=== PATIENT | female | born 1975 | race Two or more races ===

== ENCOUNTER 2022-04-26 10:55 | Emergency (ER) | payer OTHER ==
[~2022-04-26] VITALS: Ht 157.5 cm; Wt 70.3 kg
[2022-04-27] MEDS ORDERED: DICLOFENAC SODI75 MG PO (18:04)
[2022-04-27] MEDS ORDERED: MEDROLPACK PO (18:04)
== END 2022-04-26 13:51 | disposition home or self-care (01) ==
LOC: ER 10:55
DX: N23 Unspecified renal colic (principal); Z20.822 Contact with and (suspected) exposure to COVID-19; Z91.02 Food additives allergy status

== ENCOUNTER 2022-04-27 15:26 | Emergency (ER) | payer OTHER ==
[~2022-04-27] VITALS: Ht 157.5 cm; Wt 70.3 kg
[2022-04-27] MEDS ORDERED: DICLOFENAC SODI75 MG PO (18:04)
[2022-04-27] MEDS ORDERED: MEDROLPACK PO (18:04)
== END 2022-04-27 18:07 | disposition home or self-care (01) ==
LOC: ER 15:26
DX: M54.42 Lumbago with sciatica, left side (principal); Z91.040 Latex allergy status

== ENCOUNTER 2022-05-09 06:30 | Emergency (ER) | payer OTHER ==
[~2022-05-09] VITALS: Ht 157.5 cm; Wt 68.0 kg
[~2022-05-09 06:30] MED LIST: DICLOFENAC SODI75 MG PO; MEDROLPACK PO
[2022-05-09] MEDS ORDERED: DOLOGESIC 500-1 EACH (06:46)
[2022-05-09] MEDS ORDERED: TORADOL60 MG (06:46)
== END 2022-05-09 15:46 | disposition home or self-care (01) ==
LOC: ER 06:30
DX: M79.605 Pain in left leg (principal); Z91.040 Latex allergy status

== ENCOUNTER 2022-09-28 13:57 | Outpatient (CLI) | payer OTHER ==
[~2022-09-28 13:57] MED LIST changes: +DOLOGESIC 500-1 EACH; +TORADOL60 MG
== END 2022-09-28 13:59 | disposition home or self-care (01) ==
LOC: RAD 13:57
PROVIDERS: ATTEND Orthopaedic Surgery
DX: M42.06 Juvenile osteochondrosis of spine, lumbar region (principal)

== ENCOUNTER 2023-02-13 06:31 | Outpatient (CLI) | payer OTHER | END 2023-02-13 06:36 | disposition home or self-care (01) | LOC: LAB 06:31 | DX: J06.9 Acute upper respiratory infection, unspecified (principal); Z20.828 Contact with and (suspected) exposure to other viral communicable diseases ==

== ENCOUNTER 2023-02-13 07:23 | Outpatient (CLI) | payer OTHER | END 2023-02-13 07:25 | disposition home or self-care (01) | LOC: RAD 07:23 | DX: J06.9 Acute upper respiratory infection, unspecified (principal) ==

== ENCOUNTER 2023-05-26 10:09 | Emergency (ER) | payer OTHER ==
[~2023-05-26] VITALS: Ht 157.5 cm; Wt 68.9 kg
[2023-05-26] MEDS ORDERED: CYMBALTA60 MG PO (10:27)
[2023-05-26] MEDS ORDERED: LODINE300 MG (10:28)
== END 2023-05-26 11:12 | disposition home or self-care (01) ==
LOC: ER 10:09
DX: T43.215A Adverse effect of selective serotonin and norepinephrine reuptake inhibitors, initial encounter (principal); Z91.040 Latex allergy status

== ENCOUNTER 2023-05-28 08:58 | Outpatient (CLI) | payer OTHER ==
[~2023-05-28 08:58] MED LIST changes: +CYMBALTA60 MG PO; +LODINE300 MG
== END 2023-05-28 09:00 | disposition home or self-care (01) ==
LOC: LAB 08:58
DX: E78.00 Pure hypercholesterolemia, unspecified (principal); E78.1 Pure hyperglyceridemia; M62.9 Disorder of muscle, unspecified; G62.9 Polyneuropathy, unspecified; R20.2 Paresthesia of skin; E03.9 Hypothyroidism, unspecified; E11.9 Type 2 diabetes mellitus without complications; E22.1 Hyperprolactinemia

== ENCOUNTER → 2023-06-19 11:55 | Outpatient (CLI) | payer OTHER | END | disposition home or self-care (01) | LOC: LAB 11:55 | DX: E55.9 Vitamin D deficiency, unspecified (principal); N93.8 Other specified abnormal uterine and vaginal bleeding ==

== ENCOUNTER → 2023-06-19 | Outpatient (CLI) | payer OTHER | END | disposition home or self-care (01) | LOC: MAMO-SONO 12:32 | DX: Z12.31 Encounter for screening mammogram for malignant neoplasm of breast (principal) ==

== ENCOUNTER 2023-08-07 10:32 | Outpatient (CLI) | payer OTHER | END 2023-08-07 16:36 | disposition home or self-care (01) | LOC: SONOGRAMA 10:32 | PROVIDERS: ATTEND Neuromusculoskeletal Medicine & OMM | DX: R20.2 Paresthesia of skin (principal); M54.50 Low back pain, unspecified; M54.2 Cervicalgia; F51.01 Primary insomnia; Z91.040 Latex allergy status ==

== ENCOUNTER → 2023-10-30 | Outpatient (CLI) | payer OTHER ==
[2023-10-30 15:07] LABS: HEMATOCRIT 37.6 % (36.0-45.00); HEMOGLOBIN 12.5 g/dL (12.0-15.00); MEAN CELL VOLUME 89.5 fL (80.00-100.00); MEAN CORPUSCULAR HEMOGLOBIN 29.8 pg (27.00-32.0); MEAN CORPUSCULAR HGB CONC 33.4 g/dl (32.0-36.0); PLATELET COUNT 440 K/uL (150-450)
== END | disposition home or self-care (01) ==
LOC: LAB 14:15
PROVIDERS: ATTEND Internal Medicine Gastroenterology
DX: D60.0 Chronic acquired pure red cell aplasia (principal); Z91.040 Latex allergy status

== ENCOUNTER → 2023-11-20 13:43 | Outpatient (CLI) | payer OTHER ==
[2023-11-20 16:00] LABS: VITAMIN D3 25 HYDROXY 44.74 ng/ml (30-120)
== END | disposition home or self-care (01) ==
LOC: LAB 13:43
PROVIDERS: ATTEND Physical Medicine & Rehabilitation
DX: M13.80 Other specified arthritis, unspecified site (principal); M79.7 Fibromyalgia

== ENCOUNTER 2023-12-21 10:26 | Outpatient (CLI) | payer OTHER ==
[2023-12-21 12:05] LABS: HEMATOCRIT 37.2 % (36.0-45.00); HEMOGLOBIN 12.7 g/dL (12.0-15.00); MEAN CELL VOLUME 90.6 fL (80.00-100.00); MEAN CORPUSCULAR HEMOGLOBIN 30.8 pg (27.00-32.0); PLATELET COUNT 330 K/uL (150-450); RED BLOOD COUNT 4.11 M/uL (4.00-6.00); RED CELL DISTRIBUTION WIDTH 13.8 % (11.5-14.5)
[2023-12-21 12:16] LABS: PH,URINE 6.5 (5.0-8.0); URINE APPEARANCE Clear; URINE BILIRRUBIN Negative (NEGATIVE); URINE BLOOD Negative; URINE COLOR Yellow; URINE GLUCOSE Negative (NEGATIVE); URINE LEUKOCYTE Negative; URINE NITRATE Negative; URINE PROTEIN Negative (NEGATIVE); URINE UROBILINOGEN 0.2 E.U./dl
[2023-12-21 12:20] LABS: URINE BACTERIA 444.7 uL (0.0-1933); URINE EPITHELIAL CELLS 10.9 uL (0.0-38.8); URINE RBC 8.6 uL (0.0-20.8); URINE WBC 5.5 uL (0.0-23.2)
[2023-12-21 12:31] LABS: ALBUMIN 3.8 gm/dL (3.4-5.0); BILIRUBIN TOTAL 0.83 mg/dL (0.3-1.2); CALCIUM 9.7 mg/dL (8.5-10.1); CREATININE SERUM 0.64 mg/dL (0.55-1.02); GFR 99.9; GLOBULINA 3.2 G/DL (2.4-3.5); POTASSIUM 4.77 mEq/L (3.5-5.1)
== END 2023-12-21 10:45 | disposition home or self-care (01) ==
LOC: LAB 10:26
DX: R32 Unspecified urinary incontinence (principal); N95.2 Postmenopausal atrophic vaginitis; R33.9 Retention of urine, unspecified; N39.46 Mixed incontinence; R35.0 Frequency of micturition; R35.1 Nocturia; N81.6 Rectocele; N81.10 Cystocele, unspecified